=== PATIENT | male | born 1960 | race Caucasian/White ===

== ENCOUNTER 2018-05-05 11:22 | Inpatient (IN) | payer MEDICAID ==
[~2018-05-05] VITALS: Ht 170.2 cm; Wt 76.6 kg
[~2018-05-05 11:22] MED LIST: NICO14DI9 TD; OXYB5TAB61 PO
[2018-05-05 12:52] LABS: Basophils # (auto) 0.1 uL; Monocytes # (auto) 1.1 uL; Neutrophils # (auto) 10.3 uL; Neutrophils % (auto) 76.6 % (37.0-80.0); Nucleated Red Blood Cells % 0.1 %; White Blood Cell 13.5 10^3/uL (4.4-10.8)
[2018-05-05 12:54] LABS: Basophils % (auto) 0.4 % (0.0-2.0); Eosinophils # (auto) 0.1 uL; Eosinophils % (auto) 0.4 % (0.0-7.0); Hematocrit 44.4 % (41.0-53.0); Hemoglobin 14.6 g/dL (13.5-17.5); Lymphocytes % (auto) 14.6 % (10.0-50.0); Mean Corpuscular Hemoglobin 26.6 pg (28.0-32.0); Mean Corpuscular Hgb Conc. 32.9 g/dL (32.0-36.0); Mean Corpuscular Volume 80.9 fL (80.0-100.0); Platelet Count (auto) 175 10^3/uL (140-450); Red Blood Cells 5.49 10^6/uL (4.5-5.90)
[2018-05-05 13:00] LABS: Red Cell Distribution Width 21.4 % (11.8-14.3)
[2018-05-05 13:09] LABS: Alanine Aminotransferase 33 U/L (16-61); Albumin 3.5 g/dL (3.4-5.0); Alkaline Phosphatase 86 U/L (45-117); Anion Gap 8 (5-15); Aspartate Aminotransferase 20 U/L (15-37); BUN/Creatinine Ratio 11.9; Bilirubin, Total 0.9 mg/dL (0.2-1.0); Blood Urea Nitrogen 10 mg/dL (7-18); Calcium 9.3 mg/dL (8.5-10.1); Carbon Dioxide 27 mmol/L (21-32); Chloride 100 mmol/L (98-107); GFR African American 121 mL/min; GFR Non-African American 100 mL/min; Glucose 106 mg/dL (74-106); Potassium 3.6 mmol/L (3.5-5.1); Sodium 135 mmol/L (136-145); Total Protein 8.2 g/dL (6.4-8.2)
[2018-05-05 13:11] LABS: Urine Bacteria MANY /hpf (None Seen); Urine Blood 3+ /uL (Negative); Urine Mucus FEW (None Seen); Urine WBC 4282 /hpf (0 - 3)
[2018-05-05] MEDS ORDERED: PIPERACILLIN-TAZOB 3.375GM 100 ML IV ONE (13:15)
[2018-05-05] MEDS ORDERED: SODIUM CHLORIDE 0.9% 1,000 ML IV ONE ×2 (13:19)
[2018-05-05] MEDS ORDERED: ONDANSETRON HCL 4 MG/2 ML VIAL IV PRN (14:15)
[2018-05-05] MEDS ORDERED: LORazepam 2MG/ML-1ML VIAL IV PRN (14:15)
[2018-05-05] MEDS: SODIUM CHLORIDE 0.9% 1,000 ML IV SCH ×2 (14:23→21:32)
[2018-05-05] MEDS ORDERED: LISINOPRIL 10 MG TAB PO ONE (14:30)
[2018-05-05] MEDS ORDERED: HYDR-4072 PO (15:49)
[2018-05-05 16:31] VITALS: BP 186/89
[2018-05-05] MEDS ORDERED: cloNIDine HCL 0.1 MG TAB PO PRN (16:45)
[2018-05-05 17:00] VITALS: BP 155/97
[2018-05-05] MEDS: PIPERACILLIN-TAZOB 3.375GM 100 ML IV SCH (21:32)
[2018-05-05] MEDS: KETOROLAC TROMETH 30 MG/ML 1ML VIAL IV PRN (21:34)
[2018-05-05 22:00] VITALS: BP_SYST 159; BP_SYST 164; BP_DIAS 72; BP_DIAS 89
[2018-05-06 05:00] VITALS: BP 141/75
[2018-05-06] MEDS: PIPERACILLIN-TAZOB 3.375GM 100 ML IV SCH ×3 (05:34→20:57)
[2018-05-06] MEDS: KETOROLAC TROMETH 30 MG/ML 1ML VIAL IV PRN ×3 (05:46→20:48)
[2018-05-06 06:36] LABS: Basophils # (auto) 0.1 uL; Basophils % (auto) 0.6 % (0.0-2.0); Eosinophils # (auto) 0.1 uL; Eosinophils % (auto) 1.4 % (0.0-7.0); Hematocrit 37.8 % (41.0-53.0); Hemoglobin 12.6 g/dL (13.5-17.5); Lymphocytes # (auto) 2.1 uL; Lymphocytes % (auto) 19.8 % (10.0-50.0); Mean Corpuscular Hgb Conc. 33.3 g/dL (32.0-36.0); Monocytes # (auto) 1.2 uL; Monocytes % (auto) 10.8 % (0.0-12.0); Neutrophils # (auto) 7.2 uL; Neutrophils % (auto) 67.4 % (37.0-80.0); Nucleated Red Blood Cells % 0.1 %; Platelet Count (auto) 160 10^3/uL (140-450); Red Blood Cells 4.67 10^6/uL (4.5-5.90); White Blood Cell 10.7 10^3/uL (4.4-10.8)
[2018-05-06 06:38] LABS: Red Cell Distribution Width 21.3 % (11.8-14.3)
[2018-05-06 06:50] LABS: INR 0.97 (0.9-1.15); Partial Thromboplastin Time 34.1 sec (23.78-33.04); Prothrombin Time 10.4 sec (9.27-12.13)
[2018-05-06 07:04] LABS: BUN/Creatinine Ratio 16.7; Calcium 8.5 mg/dL (8.5-10.1); Potassium 4.1 mmol/L (3.5-5.1)
[2018-05-06 08:00] VITALS: BP 157/95
[2018-05-06 09:00] VITALS: BP 136/79
[2018-05-06] MEDS: LISINOPRIL 10 MG TAB PO SCH ×2 (10:00→18:35)
[2018-05-06 13:00] VITALS: BP 156/72
[2018-05-06] MEDS: SODIUM CHLORIDE 0.9% 1,000 ML IV SCH (16:55)
[2018-05-06 17:00] VITALS: BP_SYST 123; BP_SYST 164; BP_DIAS 84; BP_DIAS 88
[2018-05-06 22:00] VITALS: BP 161/88
[2018-05-07] MEDS: KETOROLAC TROMETH 30 MG/ML 1ML VIAL IV PRN (04:44)
[2018-05-07 05:00] VITALS: BP 159/95
[2018-05-07 05:52] LABS: Basophils # (auto) 0.1 uL; Basophils % (auto) 0.6 % (0.0-2.0); Eosinophils # (auto) 0.2 uL; Hematocrit 38.5 % (41.0-53.0); Hemoglobin 13.1 g/dL (13.5-17.5); Lymphocytes # (auto) 1.8 uL; Lymphocytes % (auto) 21.1 % (10.0-50.0); Mean Corpuscular Hemoglobin 27.5 pg (28.0-32.0); Mean Corpuscular Hgb Conc. 33.9 g/dL (32.0-36.0); Monocytes % (auto) 11.7 % (0.0-12.0); Neutrophils # (auto) 5.5 uL; Neutrophils % (auto) 64.6 % (37.0-80.0); Nucleated Red Blood Cells % 0.1 %; Platelet Count (auto) 172 10^3/uL (140-450); Red Blood Cells 4.75 10^6/uL (4.5-5.90); White Blood Cell 8.5 10^3/uL (4.4-10.8)
[2018-05-07] MEDS: PIPERACILLIN-TAZOB 3.375GM 100 ML IV SCH ×3 (06:09→22:10)
[2018-05-07] MEDS: SODIUM CHLORIDE 0.9% 1,000 ML IV SCH (06:10)
[2018-05-07 06:11] LABS: BUN/Creatinine Ratio 12.5; Calcium 8.6 mg/dL (8.5-10.1)
[2018-05-07 06:17] LABS: Red Cell Distribution Width 20.7 % (11.8-14.3)
[2018-05-07 08:00] VITALS: BP 131/77
[2018-05-07] MEDS: LISINOPRIL 10 MG TAB PO SCH (08:34)
[2018-05-07 13:00] VITALS: BP 155/90
[2018-05-07 16:30] VITALS: BP 164/94
[2018-05-07] MEDS: HYDROcodone-ACET 5/325MG TAB PO PRN (20:17)
[2018-05-07 22:00] VITALS: BP 138/84
[2018-05-08 05:00] VITALS: BP 114/76
[2018-05-08] MEDS: PIPERACILLIN-TAZOB 3.375GM 100 ML IV SCH ×2 (06:32→14:00)
[2018-05-08 06:36] LABS: Basophils # (auto) 0 uL; Basophils % (auto) 0.5 % (0.0-2.0); Eosinophils # (auto) 0.3 uL; Eosinophils % (auto) 3.6 % (0.0-7.0); Hematocrit 38.2 % (41.0-53.0); Hemoglobin 12.9 g/dL (13.5-17.5); Lymphocytes # (auto) 2.2 uL; Lymphocytes % (auto) 30.4 % (10.0-50.0); Mean Corpuscular Hemoglobin 27.4 pg (28.0-32.0); Mean Corpuscular Hgb Conc. 33.8 g/dL (32.0-36.0); Mean Corpuscular Volume 81.1 fL (80.0-100.0); Monocytes # (auto) 0.9 uL; Monocytes % (auto) 11.7 % (0.0-12.0); Neutrophils # (auto) 3.9 uL; Neutrophils % (auto) 53.8 % (37.0-80.0); Nucleated Red Blood Cells % 0.1 %; Platelet Count (auto) 190 10^3/uL (140-450); Red Blood Cells 4.71 10^6/uL (4.5-5.90); White Blood Cell 7.3 10^3/uL (4.4-10.8)
[2018-05-08 06:56] LABS: Red Cell Distribution Width 20.5 % (11.8-14.3)
[2018-05-08 07:11] LABS: BUN/Creatinine Ratio 12.5; Potassium 3.4 mmol/L (3.5-5.1)
[2018-05-08 08:00] VITALS: BP 148/85
[2018-05-08 08:27] VITALS: BP_SYST 117; BP_SYST 148; BP_DIAS 77; BP_DIAS 85
[2018-05-08] MEDS: HYDROcodone-ACET 5/325MG TAB PO PRN (10:40)
[2018-05-08] MEDS: LISINOPRIL 10 MG TAB PO SCH (11:47)
[2018-05-08 13:00] VITALS: BP 131/66
[2018-05-08 15:20] VITALS: BP 131/66
[2018-05-08 16:00] VITALS: BP 131/66
== END 2018-05-08 16:00 | disposition home or self-care (01) | DRG 720 ==
LOC: ER 11:22 → OVERFLOW 11:23 → WEST WING 15:49
PROVIDERS: ADMIT Internal Medicine; ATTEND Internal Medicine
DX: A41.9 Sepsis, unspecified organism (principal); C67.9 Malignant neoplasm of bladder, unspecified; N39.0 Urinary tract infection, site not specified; I10 Essential (primary) hypertension; B96.20 Unspecified Escherichia coli [E. coli] as the cause of diseases classified elsewhere; F17.210 Nicotine dependence, cigarettes, uncomplicated; N43.3 Hydrocele, unspecified; N45.1 Epididymitis; I86.1 Scrotal varices; K57.30 Diverticulosis of large intestine without perforation or abscess without bleeding; N50.89 Other specified disorders of the male genital organs; Z93.3 Colostomy status; Z88.2 Allergy status to sulfonamides; Z88.5 Allergy status to narcotic agent; Z79.899 Other long term (current) drug therapy; Z80.8 Family history of malignant neoplasm of other organs or systems; Z82.49 Family history of ischemic heart disease and other diseases of the circulatory system
CPT/HCPCS: 36415; 74176; 76870; 80048; 80053; 81001; 83605; 84484; 85025; 85610; 85730; 87040; 87086; 87088; 87186; 96361; 96365; 96366; J1885; J2543

== ENCOUNTER → 2018-12-07 | Day surgery (SDC) | payer MEDICAID ==
[2018-12-04 11:27] LABS: Urine Bacteria NONE SEEN /hpf (None Seen); Urine Blood Negative /uL (Negative); Urine Specific Gravity 1.013 (1.001-1.035); Urine WBC 34 /hpf (0 - 3)
[2018-12-04 11:27] LABS: Basophils # (auto) 0 uL; Basophils % (auto) 0.3 % (0.0-2.0); Eosinophils # (auto) 0.9 uL; Eosinophils % (auto) 7.9 % (0.0-7.0); Hematocrit 45.5 % (41.0-53.0); Hemoglobin 15.1 g/dL (13.5-17.5); Lymphocytes # (auto) 2.6 uL; Lymphocytes % (auto) 23.1 % (10.0-50.0); Mean Corpuscular Hemoglobin 31.8 pg (28.0-32.0); Mean Corpuscular Hgb Conc. 33.3 g/dL (32.0-36.0); Mean Corpuscular Volume 95.5 fL (80.0-100.0); Monocytes # (auto) 0.9 uL; Monocytes % (auto) 8.1 % (0.0-12.0); Neutrophils # (auto) 6.9 uL; Neutrophils % (auto) 60.6 % (37.0-80.0); Platelet Count (auto) 161 10^3/uL (140-450); Red Blood Cells 4.76 10^6/uL (4.5-5.90); Red Cell Distribution Width 14.8 % (11.8-14.3); White Blood Cell 11.4 10^3/uL (4.4-10.8)
[2018-12-04 11:35] LABS: INR 0.88 (0.9-1.15); Partial Thromboplastin Time 28.3 sec (23.78-33.04); Prothrombin Time 9.5 sec (9.27-12.13)
[2018-12-04 12:14] LABS: Potassium 4.3 mmol/L (3.5-5.1)
[2018-12-04 12:28] LABS: Albumin 3.7 g/dL (3.4-5.0); BUN/Creatinine Ratio 18.8; Bilirubin, Total 0.4 mg/dL (0.2-1.0); Total Protein 7.3 g/dL (6.4-8.2)
[~2018-12-07] VITALS: Ht 172.7 cm; Wt 88.5 kg
[~2018-12-07] MED LIST changes: +BELLADONNA ALKAL/OPIUM (16.2/30MG) RECT SUPP PR ONE; +HYDROmorphone HCL 2 MG/ML VL IV PRN; +LISI-646 PO; +METOCLOPRAMIDE HCL 5MG/ml INJ 2ml VIAL IV ONE; +MIDAZOLAM HCL 1MG/1ML-2 ML VIAL ONE; +NAP500T PO; -NICO14DI9 TD; +ONDANSETRON HCL 4 MG/2 ML VIAL ONE; -OXYB5TAB61 PO; +PROPOFOL 10 MG/ML 20 ML IV ONE; +ROCURONIUM 10MG/ML 10ML VIAL IV ONE; +SODIUM CHLORIDE LOCK 10 ML ONE; +VANCOMYCIN HCL 1000 MG VL ONE; +fentaNYL CITRATE 100 MCG/2 ML VL ONE
[2018-12-07] MEDS: hydrALAZINE HCL 20 MG/ML VL ONE ×2 (09:54→10:49)
[2018-12-07 10:52] VITALS: BP 171/78
== END | disposition home or self-care (01) ==
LOC: SUR 07:07
PROVIDERS: ATTEND Urology
DX: D49.4 Neoplasm of unspecified behavior of bladder (principal); M19.90 Unspecified osteoarthritis, unspecified site; M81.0 Age-related osteoporosis without current pathological fracture; F17.210 Nicotine dependence, cigarettes, uncomplicated; Z88.6 Allergy status to analgesic agent; Z88.2 Allergy status to sulfonamides; Z88.1 Allergy status to other antibiotic agents; Z93.3 Colostomy status; Z82.49 Family history of ischemic heart disease and other diseases of the circulatory system; Z80.8 Family history of malignant neoplasm of other organs or systems
CPT/HCPCS: 52240; J0360; J2765; J3010; J3370; J7050; 36415; 80053; 81001; 85025; 85610; 85730; 87086; 87088; 87186; J2250; J2405; J2704

== ENCOUNTER 2019-08-02 06:47 | Day surgery (SDC) | payer MEDICAID ==
[2019-07-29 10:54] LABS: Basophils # (auto) 0.1 uL; Eosinophils # (auto) 0.3 uL; Hematocrit 49.8 % (41.0-53.0); Hemoglobin 16.9 g/dL (13.5-17.5); Lymphocytes # (auto) 3.1 uL; Lymphocytes % (auto) 29.4 % (10.0-50.0); Mean Corpuscular Hemoglobin 32.8 pg (28.0-32.0); Mean Corpuscular Volume 96.5 fL (80.0-100.0); Monocytes # (auto) 0.9 uL; Monocytes % (auto) 8.9 % (0.0-12.0); Neutrophils # (auto) 6.1 uL; Neutrophils % (auto) 57.7 % (37.0-80.0); Nucleated Red Blood Cells % 0.2 %; Platelet Count (auto) 158 10^3/uL (140-450); Red Blood Cells 5.16 10^6/uL (4.5-5.90); Red Cell Distribution Width 14.8 % (11.8-14.3); White Blood Cell 10.6 10^3/uL (4.4-10.8)
[2019-07-29 11:13] LABS: Urine Bacteria NONE SEEN /hpf (None Seen); Urine Blood TRACE /uL (Negative); Urine Specific Gravity 1.012 (1.001-1.035); Urine WBC 12 /hpf (0 - 3)
[2019-07-29 11:14] LABS: INR 0.94 (0.9-1.15)
[2019-07-29 11:35] LABS: Potassium 4.4 mmol/L (3.5-5.1)
[2019-07-29 11:49] LABS: Albumin 4.3 g/dL (3.4-5.0); BUN/Creatinine Ratio 13.9; Bilirubin, Total 0.7 mg/dL (0.2-1.0); Calcium 10.2 mg/dL (8.5-10.1); Total Protein 8.8 g/dL (6.4-8.2)
[~2019-08-02] VITALS: Ht 172.7 cm; Wt 90.7 kg
[~2019-08-02 06:47] MED LIST changes: +ATOR20TA50 PO; -BELLADONNA ALKAL/OPIUM (16.2/30MG) RECT SUPP PR ONE; +DICL50TA4 PO; +GABA300C10 PO; +HYDR-531 PO; -HYDROmorphone HCL 2 MG/ML VL IV PRN; -METOCLOPRAMIDE HCL 5MG/ml INJ 2ml VIAL IV ONE; -MIDAZOLAM HCL 1MG/1ML-2 ML VIAL ONE; -NAP500T PO; -ONDANSETRON HCL 4 MG/2 ML VIAL ONE; -PROPOFOL 10 MG/ML 20 ML IV ONE; -ROCURONIUM 10MG/ML 10ML VIAL IV ONE; -SODIUM CHLORIDE LOCK 10 ML ONE; -VANCOMYCIN HCL 1000 MG VL ONE; -fentaNYL CITRATE 100 MCG/2 ML VL ONE
[2019-08-02] MEDS ORDERED: MIDAZOLAM HCL 1MG/1ML-2 ML VIAL ONE ×2 (09:11→09:32)
[2019-08-02] MEDS ORDERED: fentaNYL CITRATE 100 MCG/2 ML VL ONE (09:11)
[2019-08-02] MEDS ORDERED: ePHEDrine SULFATE 50 MG/ML AMP IV PRN (09:15)
[2019-08-02] MEDS ORDERED: MIDAZOLAM HCL 1MG/1ML-2 ML VIAL IV PRN (09:15)
[2019-08-02] MEDS ORDERED: LABETALOL HCL 5 MG/ML 4ML SYRINGE IV PRN (09:15)
[2019-08-02] MEDS ORDERED: ONDANSETRON HCL 4 MG/2 ML VIAL IV PRN (09:15)
[2019-08-02] MEDS ORDERED: KETOROLAC TROMETH 30 MG/ML 1ML VIAL IV ONE (09:15)
[2019-08-02] MEDS ORDERED: HYDROmorphone HCL 2 MG/ML VL IV PRN (09:15)
[2019-08-02] MEDS ORDERED: PROPOFOL 10 MG/ML 20 ML IV ONE (09:20)
[2019-08-02] MEDS ORDERED: MEPERIDINE HCL (25 MG/ML) 1ML VIAL ONE (09:20)
[2019-08-02] MEDS ORDERED: DexAMETHasone SOD PHOS 10MG/1ML VIAL INJ ONE (09:20)
[2019-08-02 12:21] VITALS: BP 122/74
== END 2019-08-02 12:36 | disposition home or self-care (01) ==
LOC: SUR 06:47
PROVIDERS: ATTEND Urology
DX: C67.0 Malignant neoplasm of trigone of bladder (principal); I25.119 Atherosclerotic heart disease of native coronary artery with unspecified angina pectoris; I10 Essential (primary) hypertension; M81.0 Age-related osteoporosis without current pathological fracture; J45.909 Unspecified asthma, uncomplicated; K57.30 Diverticulosis of large intestine without perforation or abscess without bleeding; F17.210 Nicotine dependence, cigarettes, uncomplicated; Z98.890 Other specified postprocedural states; Z79.899 Other long term (current) drug therapy; Z95.2 Presence of prosthetic heart valve; Z88.5 Allergy status to narcotic agent; Z88.2 Allergy status to sulfonamides
CPT/HCPCS: 36415; 52224; 80053; 81001; 85025; 85610; 85730; 87086; 88305; 93005; J1100; J2175; J2250; J2704; J3010

== ENCOUNTER → 2021-05-14 | Outpatient (CLI) | payer BC ==
[~2021-05-14] MED LIST changes: -DICL50TA4 PO; -GABA300C10 PO; -LISI-646 PO; +LISI20TA28 PO
[2021-05-14 09:53] LABS: Urine Bacteria FEW /hpf (None Seen); Urine Blood Negative /uL (Negative); Urine Specific Gravity 1.008 (1.001-1.035); Urine WBC 2 /hpf (0 - 3)
[2021-05-14 10:15] LABS: Basophils # (auto) 0 10 ^3/uL (0-0.2); Basophils % (auto) 0.4 % (0.0-2.0); Eosinophils # (auto) 0.4 10 ^3/uL (0-0.8); Eosinophils % (auto) 3.6 % (0.0-7.0); Hematocrit 44.8 % (41.0-53.0); Hemoglobin 16.1 g/dL (13.5-17.5); Lymphocytes # (auto) 3.3 10 ^3/uL (0.4-5.4); Lymphocytes % (auto) 28.8 % (10.0-50.0); Mean Corpuscular Hemoglobin 30.8 pg (28.0-32.0); Mean Corpuscular Volume 85.6 fL (80.0-100.0); Monocytes # (auto) 1.1 10 ^3/uL (0-1.3); Monocytes % (auto) 9.2 % (0.0-12.0); Neutrophils # (auto) 6.7 10 ^3/uL (1.6-8.6); Nucleated Red Blood Cells % 0.3 %; Red Blood Cells 5.23 10^6/uL (4.5-5.90); Red Cell Distribution Width 15.3 % (11.8-14.3); White Blood Cell 11.5 10^3/uL (4.4-10.8)
[2021-05-14 10:31] LABS: INR 0.94 (0.9-1.15); Partial Thromboplastin Time 29.2 sec (23.0-31.2)
[2021-05-14 10:35] LABS: Albumin 3.2 g/dL (3.4-5.0); BUN/Creatinine Ratio 14.6; Calcium 8.5 mg/dL (8.5-10.1)
[2021-05-14 10:38] LABS: Bilirubin, Total 0.5 mg/dL (0.2-1.0); Total Protein 7.6 g/dL (6.4-8.2)
[2021-05-14 13:16] LABS: Potassium 2.8 mmol/L (3.5-5.1)
== END | disposition home or self-care (01) ==
LOC: LAB 09:23
PROVIDERS: ATTEND Urology
DX: Z01.818 Encounter for other preprocedural examination (principal); N39.0 Urinary tract infection, site not specified; D53.8 Other specified nutritional anemias; M79.89 Other specified soft tissue disorders
CPT/HCPCS: 36415; 80053; 81001; 85025; 85049; 85610; 85730; 87086

== ENCOUNTER 2021-05-17 10:07 | Day surgery (SDC) | payer BC ==
[~2021-05-17] VITALS: Ht 172.7 cm; Wt 72.6 kg
[2021-05-17] MEDS ORDERED: mitoMYcin 40 MG in STERILE WATER 80 ML IS ONE (11:00)
[2021-05-17] MEDS ORDERED: mitoMYcin 40 MG in STERILE WATER 60 ML IS ONE (11:30)
[2021-05-17] MEDS ORDERED: CIPROFLOXACIN 400MG/200ML 200 ML IV ONE (11:40)
[2021-05-17] MEDS ORDERED: FAMOTIDINE (10MG/ML) 2ML VL IV ONE (12:19)
[2021-05-17] MEDS ORDERED: MEPERIDINE HCL (50 MG/ML) 1 ML VIAL ONE (12:25)
[2021-05-17] MEDS ORDERED: MIDAZOLAM HCL 1MG/1ML-2 ML VIAL ONE (12:25)
[2021-05-17] MEDS ORDERED: fentaNYL CITRATE 100 MCG/2 ML VL ONE (12:25)
[2021-05-17] MEDS ORDERED: LIDOCAINE 2% (LOCAL ANESTH.) PF 5ml SDV ONE (12:26)
[2021-05-17] MEDS ORDERED: ONDANSETRON HCL 4 MG/2 ML VIAL ONE (12:26)
[2021-05-17] MEDS ORDERED: GLYCOPYRROLATE 0.2 MG/ML 1ML VIAL ONE (12:26)
[2021-05-17] MEDS ORDERED: PROPOFOL 10 MG/ML 20 ML IV ONE (12:26)
[2021-05-17] MEDS ORDERED: ePHEDrine SULFATE 50 MG/ML AMP ONE (12:26)
[2021-05-17] MEDS ORDERED: DexAMETHasone SOD PHOS 10MG/1ML VIAL INJ ONE (12:26)
[2021-05-17] MEDS ORDERED: SUCCINYLCHOLINE CHLORIDE 20 MG/ML 10ML VIAL IV ONE (12:26)
[2021-05-17] MEDS ORDERED: ONDANSETRON HCL 4 MG/2 ML VIAL IV PRN (14:00)
[2021-05-17] MEDS ORDERED: HYDROmorphone HCL 2 MG/ML VL IV PRN (14:00)
[2021-05-17 15:10] VITALS: BP 151/80
== END 2021-05-17 15:35 | disposition home or self-care (01) ==
LOC: SUR 10:07
PROVIDERS: ATTEND Urology
DX: R31.0 Gross hematuria (principal); C67.1 Malignant neoplasm of dome of bladder; I10 Essential (primary) hypertension; E78.5 Hyperlipidemia, unspecified; M51.36 Other intervertebral disc degeneration, lumbar region; Z88.1 Allergy status to other antibiotic agents; Z20.822 Contact with and (suspected) exposure to COVID-19; Z98.890 Other specified postprocedural states; Z79.899 Other long term (current) drug therapy; Z88.5 Allergy status to narcotic agent; Z85.51 Personal history of malignant neoplasm of bladder; Z80.9 Family history of malignant neoplasm, unspecified
CPT/HCPCS: 52234; 88305; J0330; J0744; J1100; J2001; J2175; J2250; J2405; J2704; J3010; J3490; J9280; U0003

== ENCOUNTER → 2022-05-30 | Outpatient (CLI) | payer BC ==
[~2022-05-30] MED LIST changes: +ALBUTEROL SULF 2.5 MG/0.5ML(0.5%) NEB SOLN ONE; +SODIUM CHLORIDE 0.9 % NEB SOLN 3ML NEB ONE
== END | disposition home or self-care (01) ==
LOC: RT 09:46
PROVIDERS: ATTEND Internal Medicine Pulmonary Disease
DX: J44.9 Chronic obstructive pulmonary disease, unspecified (principal); R06.00 Dyspnea, unspecified; R05.9 Cough, unspecified
CPT/HCPCS: 94060; 94727; 94729